=== PATIENT | male | born 1935 | race Hispanic/Latino ===

== ENCOUNTER 2024-07-03 10:45 | Emergency (ER) | payer OTHER ==
[2024-07-03 11:35] LABS: Hematocrit 42.4 % (38.8-50.0); Hemoglobin 14.2 g/dL (13.5-17.5); MDiff Complete? YES; Mean Corpuscular HGB CONC 33.5 g/dL (32.0-36.0); Mean Corpuscular Hemoglobin 31.1 pg (27.0-33.0); Mean Corpuscular Volume 92.8 fL (81.2-95.1); Mean Platelet Volume 11.8 fL (7.4-10.4); Platelet Count 174 10x3/uL (150-450); RBC Distribution Width 14.6 % (11.5-14.5); Red Blood Cell (RBC) Count 4.57 10x6/uL (4.32-5.72); White Blood Cell (WBC) Count 6.1 10x3/uL (3.5-10.5)
[2024-07-03 11:41] LABS: PTT 24.6 sec (22.0-33.0); Prothrombin Time 11.1 sec (9.5-12.1)
[2024-07-03 11:44] LABS: Acetaminophen Less than 10 mcg/mL (Less than 10); Alcohol Less than 10.0 mg/dL (Less than 10); Lipase 16 U/L (8-78); Salicylate Less than 8.0 mg/dL (Less than 8.0)
[2024-07-03 11:45] LABS: ALT (SGPT) 42 U/L (8-55); AST (SGOT) 22 U/L (5-34); Albumin 3.6 g/dL (3.4-4.8); Alkaline Phosphatase 58 U/L (40-110); Anion Gap 15 mmol/L (10-20); BUN (Urea Nitrogen) 22 mg/dL (8.4-25.7); Bilirubin, Total 1.1 mg/dL (0.2-1.2); Calc. Creatinine Clearance 0 mL/min (70-130); Calcium 9.3 mg/dL (7.8-10.44); Carbon Dioxide 23 mmol/L (23-31); Chloride 105 mmol/L (98-107); Estimated GFR 57; Globulin 2.7 g/dL (2.4-3.5); Glucose 105 mg/dL (83-110); Potassium 3.5 mmol/L (3.5-5.1); Protein, Total 6.3 g/dL (5.8-8.1); Sodium 139 mmol/L (136-145)
[2024-07-03 11:50] LABS: Troponin I Less than 0.010 ng/mL (< 0.028)
[2024-07-03 11:56] LABS: Band 1 % (5-11); Eosinophils 3 % (0-10); Lymphocytes 22 % (21-51); Monocytes 1 % (0-10); Neutrophil 73 % (42-75)
[2024-07-03] MEDS ORDERED: Iopamidol 370 76% 100 ML VIAL ONE (13:06)
[2024-07-03 14:21] LABS: Bilirubin Neg (Negative); Blood, Urine Negative (Negative); Clarity Clear (Clear); Glucose, Urine (Dipstick) Normal (Negative); Ketone, Urine 5 mg/dL (Negative); Leukocyte 25 (Negative); Nitrite Negative (Negative); Protein, Urine (Dipstick) 15 mg/dl (Neg-Trace); Specific Gravity, Urine 1.015 (1.005-1.030); pH, Urine 6.5 (5.0-9.0)
[2024-07-03] MEDS ORDERED: Metoprolol Tartrate 5 MG (5 mL) VIAL ONE (14:23)
[2024-07-03 14:30] LABS: Amphetamine Not Detected (NotDetected); Barbiturates Screen Not Detected (NotDetected); Benzodiazepine Screen Not Detected (NotDetected); Cocaine Metabolite Screen Not Detected (NotDetected); Methadone Not Detected (NotDetected); Methamphetamine Not Detected (NotDetected); Opiate Screen Not Detected (NotDetected); Oxycodone Screen Not Detected (NotDetected); Phencyclidine (PCP) Not Detected (NotDetected); THC/Cannabinoid Screen Not Detected (NotDetected); Tricyclic Screen Not Detected (NotDetected)
[2024-07-03 14:43] LABS: Bacteria/HPF Rare-Few HPF (None Seen); CAUTI Indications for Culture Alt mental st,lethar; RBC/HPF 0-3 HPF (0-3)
[2024-07-03 14:45] LABS: Urine Culture Reflex No No
== END 2024-07-03 18:53 | disposition short-term general hospital (02) ==
LOC: CSHERS 10:45 → EEVIPCON 10:45 → CSHERS 18:53
DX: I48.91 Unspecified atrial fibrillation (principal); R41.82 Altered mental status, unspecified; I10 Essential (primary) hypertension; E78.5 Hyperlipidemia, unspecified; Z79.899 Other long term (current) drug therapy
CPT/HCPCS: 36415; 36416; 70450; 70551; 71045; 74177; 80053; 80306; 80307; 81001; 83605; 83690; 83880; 84443; 84484; 85025; 85610; 85730; 93005; 96374; Q9967